=== PATIENT | male | born 1975 | race Caucasian/White ===

== ENCOUNTER → 2020-02-03 17:54 | Outpatient (CLI) | payer OTHER, SELFPAY ==
--- NOTE | 2020-02-03 | DI.MRI.S_ITS ---
PROCEDURE: MR KNEE LT WO CON INDICATIONS: Unspecified superficial injury of left knee, initi TECHNIQUE: Noncontrast sagittal PD fast spin echo and T2 fast spin echo with fat saturation, sagittal 3-D FLASH with fat saturation; coronal T1 spin echo and PD fast spin echo with fat saturation, and axial PD fast spin echo with fat saturation through the knee. COMPARISON: None. FINDINGS: Image quality: Excellent. Menisci: The medial and lateral menisci demonstrate normal morphology and internal signal. The meniscal root ligaments appear intact. Cruciate ligaments: There is rupture of the anterior cruciate ligament near its femoral insertion. Posterior cruciate ligament is intact. Medial structures: Low-grade MCL sprain is seen. The posterior oblique ligament, semimembranosus tendon insertions, oblique popliteal ligament, and meniscocapsular junction appear intact. Visualized portions of the pes anserinus tendons appear normal. No abnormal bursal fluid. Lateral structures: The lateral collateral ligament, long and short heads of the biceps femoris tendon appear intact. The popliteus tendon appears normal; the popliteofibular ligament appears intact. The posterosuperior and anteroinferior popliteomeniscal fascicles appear intact. The arcuate and fabellofibular ligaments appear intact, on either side of the lateral inferior geniculate artery. Iliotibial band appears normal. Anterior structures: The quadriceps and patellar tendons appear intact. Patellar alignment is normal. No femoral trochlear dysplasia or ventral trochlear prominence. No edema in the infrapatellar fat pad. Bones and cartilage: Marrow edema the involving weight-bearing portion of lateral femoral condyle and posterior periphery of proximal tibia extending to both medial and lateral tibial plateau is seen. No discrete fracture line sided. 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 Low-grade chondromalacia in the apex of patella is seen with underlying 3-4 mm subchondral cyst formation. Joint space: There is moderate amount of joint fluid. No Michelle's cyst. Normal appearing synovial plicae are incidentally noted. IMPRESSION: 1. Finding is suggestive of full-thickness ACL rupture. PCL is intact. 2. No evidence of focal meniscal tear. 3. Bony contusion involving weight-bearing portion of lateral femoral condyle and posterior aspect of proximal tibia extending to both medial and lateral tibial plateau. Moderate amount of joint fluid. 4. Low-grade chondromalacia in medial and lateral femoral tibial compartment and apex of patella cartilage as above. 5. Low-grade MCL sprain. Dictated by: Mark Morris M.D. on 02/04/2020 at 8:33 Approved by: Mark Morris M.D. on 02/04/2020 at 8:45
== END ==
PROVIDERS: PCP Student in an Organized Health Care Education/Training Program; Referring Provider Student in an Organized Health Care Education/Training Program; Visit Provider Student in an Organized Health Care Education/Training Program
DX: S83.412A Sprain of medial collateral ligament of left knee, initial encounter (principal); S80.02XA Contusion of left knee, initial encounter; M22.42 Chondromalacia patellae, left knee; X58.XXXA Exposure to other specified factors, initial encounter
CPT/HCPCS: 73721

== ENCOUNTER → 2020-12-11 10:25 | Outpatient (CLI) | payer OTHER, SELFPAY ==
[2020-12-11 11:44] LABS: COVID19 -Nasal RAPID Negative (Negative)
== END ==
PROVIDERS: PCP Student in an Organized Health Care Education/Training Program; Visit Provider Physician Assistant
DX: Z20.822 Contact with and (suspected) exposure to COVID-19 (principal)
CPT/HCPCS: 87635

== ENCOUNTER → 2022-11-24 08:11 | Outpatient (CLI) | payer OTHER, SELFPAY ==
[2022-11-24 08:41] LABS: Add Manual Diff / Slide Review NO; Basophils Absolute Auto 100 /uL (0-100); Eosinophils Absolute Auto 200 /uL (0-450); Eosinophils Percent Auto 2.9 % (2-4); Hematocrit 44.1 % (41-53); Hemoglobin 15.6 g/dL (13.5-17.5); Lymphocytes Absolute Auto 2200 /uL (1100-4500); Mean Corpuscular HGB Conc 35.5 % (30-36); Mean Corpuscular Hemoglobin 30.2 PG (26-34); Mean Corpuscular Volume 85.1 fL (80-100); Monocytes Absolute Auto 600 /uL (0-900); Monocytes Percent Auto 8.1 % (3-14); Neutrophils Absolute Auto 4700 /uL (1500-7000); Platelet Count 183 X10^3/uL (150-400); Red Blood Cell Count 5.19 X10^6/uL (4.5-5.9); Red Cell Distribution Width 13.7 % (11.6-14.8); White Blood Cell Count 7.9 X10^3/uL (4.5-11.0)
[2022-11-24 08:46] LABS: Hemoglobin A1C% w Est Avg Glu 6.5 % (4.0-6.0)
[2022-11-24 09:14] LABS: Alanine Aminotransferase 79 IU/L (<50); Albumin 4.4 g/dL (3.5-5.0); Albumin Globulin Ratio 1.5 (1.0-2.8); Alkaline Phosphatase 75 U/L (38-126); Aspartate Aminotransferase 38 IU/L (17-59); Bilirubin Total 2.1 mg/dL (0.2-1.3); Blood Urea Nitrogen 19 mg/dL (9-20); Calcium 8.9 mg/dL (8.4-10.2); Carbon Dioxide 26 mmol/L (22-32); Chloride 103 mmol/L (98-107); Cholesterol 228 mg/dL (140-199); Estimated Glomerular Filt Rate > 60 mL/min (>60); Globulin 2.9 g/dL (1.7-4.1); Glucose 146 mg/dL (70-100); HDL Cholesterol 31 mg/dL (40-60); Potassium 4.4 mmol/L (3.4-5.1); Sodium 138 mmol/L (137-145); Total Protein 7.3 g/dL (6.3-8.2); Uric Acid 6.9 mg/dL (3.5-8.5)
[2022-11-24 09:21] LABS: HEMOLYSIS 16 (0-50)
[2022-11-24 09:22] LABS: Triglycerides 739 mg/dL (35-150)
== END ==
PROVIDERS: Family Provider Family Medicine; PCP Family Medicine; Referring Provider Family Medicine; Visit Provider Family Medicine
DX: E88.89 Other specified metabolic disorders (principal); G47.30 Sleep apnea, unspecified; Z13.9 Encounter for screening, unspecified; Z85.820 Personal history of malignant melanoma of skin; Z98.890 Other specified postprocedural states; E66.9 Obesity, unspecified
CPT/HCPCS: 36415; 80053; 80061; 83036; 84550; 85025

== ENCOUNTER 2023-01-01 15:15 | Outpatient (RCR) | payer OTHER, SELFPAY ==
--- NOTE | 2022-12-05 09:37 | PT.OIE ---
Current Diagnoses Obesity, unspecified (12/04/22) Other specified metabolic disorders (12/04/22) Other specified postprocedural states (12/04/22) Past Medical History (Last Updated 11/15/22 @ 20:40 by Kimberly Mathew) Allergies (~1999) Foot pain (~1999) History of melanoma (~2020) Liver disease (~1999) Obesity (BMI 30-39.9) Obstructive sleep apnea, adult Sleep apnea (~2016) Steatosis Tinnitus (~1997) Vision disorder (~2007) Past Surgical History (Last Updated 11/15/22 @ 20:40 by Kimberly Mathew) Anesthesia History of repair of anterior cruciate ligament of left knee (~04/2020) Visit Care Team Role Provider Type Christoph Cochran DO Attending Provider Physician Family Provider Primary Care Provider Referring Provider Specialty: Family Practice Address: [address] [place] [address], [facility] Email: [email or web address] Physical Therapy Initial Evaluation PT-OP-A Visit Information Start: 12/04/22 16:35 Freq: Status: Active Protocol: Document 12/04/22 16:00 DCW (Rec: 12/04/22 16:36 DCW [id number]) Out-Patient Physical Therapy Visit Information Visit Information Visit Type Initial Evaluation Visit Start Time 16:00 Visit Stop Time 16:30 Total Visit Minutes 30 Visit Number 1 Number of IT SECURITY ENGINEER Visits 0 Evaluation Information Evaluation Date 12/04/22 PT-OP-B Current Condition Start: 12/04/22 16:35 Freq: Status: Active Protocol: Document 12/04/22 16:00 DCW (Rec: 12/04/22 17:46 DCW [id number]) Current Condition History of Current Condition Onset Date Three year history Current Complaints R knee pain, muscle cramping in left upper leg History of Current Condition Pt is a 47 year old male presenting with a three year history of left leg pain and tenderness. Pt underwent an MRI in January 2020 and was found to have a complete ACL tear. ACL reconstruction with hamstring harvest performed April 2020. Pt reports after surgery, he underwent 1.5 years of PT for recovery, however ever since surgery, he has had tenderness around his knee, and has occasional severe leg cramping. Pt reports cramping begins in his quad, then feels like it goes up into his abdomen, and then down into his calf. Never has any symptoms in his hip or back. Pt reports cramps typically last 20-45 minutes, but the longest has lasted 1 hour 20 minutes. Pt occasionally has difficulty lifting his leg or crossing his left leg over his right. Pt participates in martial arts, and feels he has significantly less control using his left leg for kicking . Has not discovered anything which helps at all. Treatment Goals Patient/Caregiver Goals Minimize occurrences of leg pain and cramping. PT-OP-C Subjective Start: 12/04/22 16:35 Freq: Status: Active Protocol: Document 12/04/22 16:00 DCW (Rec: 12/04/22 16:39 DCW [id number]) OP-PT Subjective Patient Comments Patient Comments I can tell by the way my leg is feeling right now that within 24-96 hours, I'm going to be dealing with a pretty bad cramp. Patient Questionnaires Lower Extremity Functional Scale LEFS Score 54/80 = 67.5% LEFS Impairment 20 to 39% Impaired (Score 48- 62) PT-OP-F Manual Assessment Start: 12/04/22 16:35 Freq: Status: Active Protocol: Document 12/04/22 16:00 DCW (Rec: 12/04/22 17:52 DCW [id number]) Manual Assessments Soft Tissue Assessment Soft Tissue Mobility Assessment Mild-moderate tone left proximal gastroc, distal hamstrings, some mild complaints of general soreness . Joint Mobility Assessment Joint Mobility Assessment Very stable left knee joint with no notable laxity 2.5 years s/p ACL repair, ROM WNL PT-OP-K Range of Motion Start: 12/04/22 16:35 Freq: Status: Active Protocol: Document 12/04/22 16:00 DCW (Rec: 12/04/22 17:52 DCW [id number]) Knee Goniometric Range of Motion Knee Left Knee ROM WFL Yes Patient Position Supine Flexion Active (degrees) 130 Extension Active (degrees) 0 PT-OP-L Special Tests Start: 12/04/22 16:35 Freq: Status: Active Protocol: Document 12/04/22 16:00 DCW (Rec: 12/04/22 17:52 DCW [id number]) Special Tests Knee Special Tests Varus- 25 Degrees Test Results Negative Valgus- 25 Degrees Test Results Negative Posterior Draw Test Results Negative Patella Tap Test Results Negative Dc Test Test Results Negative Apley's Compression Test Results Negative Anterior Draw Test Results Negative PT-OP-M Strength Start: 12/04/22 16:35 Freq: Status: Active Protocol: Document 12/04/22 16:00 DCW (Rec: 12/04/22 17:52 DCW [id number]) Knee Strength Knee Manual Muscle Testing Right Flexion (S2) 5 Normal Extension (L3) 5 Normal Left Flexion (S2) 4 Good Extension (L3) 5 Normal Comments Left flexion initially tests 5 /5, however after 2-3 seconds very quickly fatigues and pt no longer able to pull against resistance PT-OP-T Assessment and Plan Start: 12/04/22 16:35 Freq: Status: Active Protocol: Document 12/04/22 16:00 DCW (Rec: 12/05/22 09:37 DCW [id number]) Physical Therapy Assessment Rehab Potential Rehabilitation Potential Good Evaluation Complexity Number of Personal Factors/Comorbidities 0 Number of Body Systems Impaired 1-2 Clinical Presentation at Evaluation Unstable Impairments Impairments Pain,Strength Goals One Impairment Pt experiences severe occasional cramping in left leg Substation Operator Automatic Goal (LTG) Pt to report no instances of cramping over the course of two weeks to enable him to return to PLOF LTG Duration 02/01/23 Assessment Summary Assessment Pt displays unusual presentation 2.5 years post-op left ACL repair with hamstring harvest site. Pt reports occasional severe cramping in left quads, abdomen, and calf, with no apparent instigating factor. Only notable finding in his evaluation is weakness/ fatigability of left hamstring . Based on presentation, difficult to determine cause of pt symptoms and complaints. One possibility is that due to his active lifestyle and imbalance in left leg strength anterior vs posterior, he overworks his quads for knee stability, causing compensatory distress and muscle spasm. Recommend focusing on improving hamstring strength and activity tolerance specifically. Pt is a relatively young, active individual, and feels comfortable with independent exercise to focus on this goal at this time. Plan for pt to return in 2-3 weeks to discuss progress and determine if any other options are feasible at that time. Physical Therapy Plan Frequency and Duration Frequency of Treatment Every Other Week Plan of Care Start Date 12/04/22 Plan of Care End Date 02/01/23 Therapeutic Interventions Therapeutic Interventions Home Exercise Program,Joint Mobilizations,Manual Therapy, Neuromuscular Re-education, Patient/Caregiver Education, Self-Care/Home Management,Soft Tissue Mobilization, Therapeutic Activities, Therapeutic Exercises Modalities Cold Pack/Ice Massage,Electric Stimulation,Hot Packs Next Visit Focus/Plan Next Note Type Treatment Note Next Visit Plan Hamstring strengthening, increasing activity tolerance
--- NOTE | 2022-12-05 09:39 | PT.OPPOC ---
Physical, Occupational & Speech Therapy At [facility] Current Diagnoses Obesity, unspecified (12/04/22) Other specified metabolic disorders (12/04/22) Other specified postprocedural states (12/04/22) Visit Care Team Role Provider Type Christoph Cochran DO Attending Provider Physician Family Provider Primary Care Provider Referring Provider Specialty: Family Practice Address: [address] [place] [address], [facility] Email: [email or web address] Plan Of Care PT-OP-T Assessment and Plan Start: 12/04/22 16:35 Freq: Status: Active Protocol: Document 12/04/22 16:00 DCW (Rec: 12/05/22 09:37 DCW [id number]) Physical Therapy Assessment Rehab Potential Rehabilitation Potential Good Evaluation Complexity Number of Personal Factors/Comorbidities 0 Number of Body Systems Impaired 1-2 Clinical Presentation at Evaluation Unstable Impairments Impairments Pain,Strength Goals One Impairment Pt experiences severe occasional cramping in left leg Rug Touch Up Painter Goal (LTG) Pt to report no instances of cramping over the course of two weeks to enable him to return to PLOF LTG Duration 02/01/23 Assessment Summary Assessment Pt displays unusual presentation 2.5 years post-op left ACL repair with hamstring harvest site. Pt reports occasional severe cramping in left quads, abdomen, and calf, with no apparent instigating factor. Only notable finding in his evaluation is weakness/ fatigability of left hamstring . Based on presentation, difficult to determine cause of pt symptoms and complaints. One possibility is that due to his active lifestyle and imbalance in left leg strength anterior vs posterior, he overworks his quads for knee stability, causing compensatory distress and muscle spasm. Recommend focusing on improving hamstring strength and activity tolerance specifically. Pt is a relatively young, active individual, and feels comfortable with independent exercise to focus on this goal at this time. Plan for pt to return in 2-3 weeks to discuss progress and determine if any other options are feasible at that time. Physical Therapy Plan Frequency and Duration Frequency of Treatment Every Other Week Plan of Care Start Date 12/04/22 Plan of Care End Date 02/01/23 Therapeutic Interventions Therapeutic Interventions Home Exercise Program,Joint Mobilizations,Manual Therapy, Neuromuscular Re-education, Patient/Caregiver Education, Self-Care/Home Management,Soft Tissue Mobilization, Therapeutic Activities, Therapeutic Exercises Modalities Cold Pack/Ice Massage,Electric Stimulation,Hot Packs Next Visit Focus/Plan Next Note Type Treatment Note Next Visit Plan Hamstring strengthening, increasing activity tolerance Plan of Care Dates Plan of Care Start Date 12/04/22 Plan of Care End Date 02/01/23 Electronically Signed by: Harman Alberts, PT 12/05/22 0939 If you are in agreement with this Plan of Care, please return a signed and dated copy. I have reviewed this Plan of Care and certify that the skilled therapy services above are required to meet the patient?s needs. Physician Signature Date Printed Name and Credentials Clinical Instructor Signature Printed Name and Credentials
--- NOTE | 2023-01-01 16:02 | PT.OTN ---
Current Diagnoses Obesity, unspecified (01/01/23) Other specified metabolic disorders (01/01/23) Other specified postprocedural states (01/01/23) Physical Therapy Treatment Note PT-OP-A Visit Information Start: 12/04/22 16:35 Freq: Status: Active Protocol: Document 01/01/23 15:15 DCW (Rec: 01/01/23 16:02 DCW [id number]) Out-Patient Physical Therapy Visit Information Visit Information Visit Type Treatment Note Visit Start Time 15:15 Visit Stop Time 16:00 Total Visit Minutes 45 Visit Number 2 Number of INFORMATION TECHNOLOGY ANALYST Visits 0 Evaluation Information Evaluation Date 12/04/22 PT-OP-B Current Condition Start: 12/04/22 16:35 Freq: Status: Active Protocol: Document 12/04/22 16:00 DCW (Rec: 12/04/22 17:46 DCW [id number]) Current Condition History of Current Condition Onset Date Three year history Current Complaints R knee pain, muscle cramping in left upper leg History of Current Condition Pt is a 47 year old male presenting with a three year history of left leg pain and tenderness. Pt underwent an MRI in January 2020 and was found to have a complete ACL tear. ACL reconstruction with hamstring harvest performed April 2020. Pt reports after surgery, he underwent 1.5 years of PT for recovery, however ever since surgery, he has had tenderness around his knee, and has occasional severe leg cramping. Pt reports cramping begins in his quad, then feels like it goes up into his abdomen, and then down into his calf. Never has any symptoms in his hip or back. Pt reports cramps typically last 20-45 minutes, but the longest has lasted 1 hour 20 minutes. Pt occasionally has difficulty lifting his leg or crossing his left leg over his right. Pt participates in martial arts, and feels he has significantly less control using his left leg for kicking . Has not discovered anything which helps at all. Treatment Goals Patient/Caregiver Goals Minimize occurrences of leg pain and cramping. PT-OP-C Subjective Start: 12/04/22 16:35 Freq: Status: Active Protocol: Document 01/01/23 15:15 DCW (Rec: 01/01/23 16:02 DCW [id number]) OP-PT Subjective Patient Comments Patient Comments Pt reports he has been trying to do more squats and walking on treadmill to get his hamstrings working better. PT-OP-F Manual Assessment Start: 12/04/22 16:35 Freq: Status: Active Protocol: Document 12/04/22 16:00 DCW (Rec: 12/04/22 17:52 DCW [id number]) Manual Assessments Soft Tissue Assessment Soft Tissue Mobility Assessment Mild-moderate tone left proximal gastroc, distal hamstrings, some mild complaints of general soreness . Joint Mobility Assessment Joint Mobility Assessment Very stable left knee joint with no notable laxity 2.5 years s/p ACL repair, ROM WNL PT-OP-K Range of Motion Start: 12/04/22 16:35 Freq: Status: Active Protocol: Document 12/04/22 16:00 DCW (Rec: 12/04/22 17:52 DCW [id number]) Knee Goniometric Range of Motion Knee Left Knee ROM WFL Yes Patient Position Supine Flexion Active (degrees) 130 Extension Active (degrees) 0 PT-OP-L Special Tests Start: 12/04/22 16:35 Freq: Status: Active Protocol: Document 12/04/22 16:00 DCW (Rec: 12/04/22 17:52 DCW [id number]) Special Tests Knee Special Tests Varus- 25 Degrees Test Results Negative Valgus- 25 Degrees Test Results Negative Posterior Draw Test Results Negative Patella Tap Test Results Negative Dc Test Test Results Negative Apley's Compression Test Results Negative Anterior Draw Test Results Negative PT-OP-M Strength Start: 12/04/22 16:35 Freq: Status: Active Protocol: Document 12/04/22 16:00 DCW (Rec: 12/04/22 17:52 DCW [id number]) Knee Strength Knee Manual Muscle Testing Right Flexion (S2) 5 Normal Extension (L3) 5 Normal Left Flexion (S2) 4 Good Extension (L3) 5 Normal Comments Left flexion initially tests 5 /5, however after 2-3 seconds very quickly fatigues and pt no longer able to pull against resistance PT-OP-Q Treatments Start: 12/04/22 16:35 Freq: Status: Active Protocol: Document 01/01/23 15:15 DCW (Rec: 01/01/23 16:02 DCW [id number]) Cardio Equipment Treadmill Duration (Minutes) 5 Speed 2.0 Incline 10.0 Other Retro Ambulation Gym Equipment Shuttle Recovery Retro Kick Details Backward kick in quarduped Resistance 50# Therapeutic Ball Bridging Exercise Details Bridging /c HS curls Ball Size/Color Red - 55 cm Therapeutic Exercises Sitting Exercises Hamstring Curl Sitting Exercise Name HS curl Side bilateral Resistance Lv 4 Standing Exercises Hip Extension Standing Exercise Name Hip Extension Side bilateral Resistance Blue Manual Therapy Treatment Soft Tissue Mobilization Calf Body Location L Proximal Calf Medial>Lateral Mobilization Type Sustained Pressure,Trigger Point Release Intensity/Depth Moderate PT-OP-T Assessment and Plan Start: 12/04/22 16:35 Freq: Status: Active Protocol: Document 01/01/23 15:15 DCW (Rec: 01/01/23 16:02 DCW [id number]) Physical Therapy Assessment Goals One Impairment Pt experiences severe occasional cramping in left leg Internet Sales Consultant Goal (LTG) Pt to report no instances of cramping over the course of two weeks to enable him to return to PLOF LTG Duration 02/01/23 Assessment Summary Assessment Focused today on hamstring and glute-specific strengthening activities for pt to perform as his HEP in an effort to improve tolerance to activity of left hamstrings, which seems to fatigue very quickly for pt. Physical Therapy Plan Frequency and Duration Frequency of Treatment Every Other Week Plan of Care Start Date 12/04/22 Plan of Care End Date 02/01/23 Therapeutic Interventions Therapeutic Interventions Home Exercise Program,Joint Mobilizations,Manual Therapy, Neuromuscular Re-education, Patient/Caregiver Education, Self-Care/Home Management,Soft Tissue Mobilization, Therapeutic Activities, Therapeutic Exercises Modalities Cold Pack/Ice Massage,Electric Stimulation,Hot Packs Next Visit Focus/Plan Next Note Type Treatment Note Next Visit Plan Hamstring strengthening, increasing activity tolerance
--- NOTE | 2023-04-30 17:14 | PT.OPDS ---
Current Diagnoses Obesity, unspecified (01/01/23) Other specified metabolic disorders (01/01/23) Other specified postprocedural states (01/01/23) Visit Care Team Role Provider Type Christoph Cochran DO Attending Provider Physician Family Provider Primary Care Provider Referring Provider Specialty: Family Practice Address: [address] [place] [address], [id number] Email: [email or web address] Visit Number Visit Number 2 Discharge Summary PT-OP-B Current Condition Start: 12/04/22 16:35 Freq: Status: Active Protocol: Document 12/04/22 16:00 DCW (Rec: 12/04/22 17:46 DCW [id number]) Current Condition History of Current Condition Onset Date Three year history Current Complaints R knee pain, muscle cramping in left upper leg History of Current Condition Pt is a 47 year old male presenting with a three year history of left leg pain and tenderness. Pt underwent an MRI in January 2020 and was found to have a complete ACL tear. ACL reconstruction with hamstring harvest performed April 2020. Pt reports after surgery, he underwent 1.5 years of PT for recovery, however ever since surgery, he has had tenderness around his knee, and has occasional severe leg cramping. Pt reports cramping begins in his quad, then feels like it goes up into his abdomen, and then down into his calf. Never has any symptoms in his hip or back. Pt reports cramps typically last 20-45 minutes, but the longest has lasted 1 hour 20 minutes. Pt occasionally has difficulty lifting his leg or crossing his left leg over his right. Pt participates in martial arts, and feels he has significantly less control using his left leg for kicking . Has not discovered anything which helps at all. Treatment Goals Patient/Caregiver Goals Minimize occurrences of leg pain and cramping. PT-OP-C Subjective Start: 12/04/22 16:35 Freq: Status: Active Protocol: Document 01/01/23 15:15 DCW (Rec: 01/01/23 16:02 DCW [id number]) OP-PT Subjective Patient Comments Patient Comments Pt reports he has been trying to do more squats and walking on treadmill to get his hamstrings working better. PT-OP-F Manual Assessment Start: 12/04/22 16:35 Freq: Status: Active Protocol: Document 12/04/22 16:00 DCW (Rec: 12/04/22 17:52 DCW [id number]) Manual Assessments Soft Tissue Assessment Soft Tissue Mobility Assessment Mild-moderate tone left proximal gastroc, distal hamstrings, some mild complaints of general soreness . Joint Mobility Assessment Joint Mobility Assessment Very stable left knee joint with no notable laxity 2.5 years s/p ACL repair, ROM WNL PT-OP-K Range of Motion Start: 12/04/22 16:35 Freq: Status: Active Protocol: Document 12/04/22 16:00 DCW (Rec: 12/04/22 17:52 DCW [id number]) Knee Goniometric Range of Motion Knee Left Knee ROM WFL Yes Patient Position Supine Flexion Active (degrees) 130 Extension Active (degrees) 0 PT-OP-L Special Tests Start: 12/04/22 16:35 Freq: Status: Active Protocol: Document 12/04/22 16:00 DCW (Rec: 12/04/22 17:52 DCW [id number]) Special Tests Knee Special Tests Varus- 25 Degrees Test Results Negative Valgus- 25 Degrees Test Results Negative Posterior Draw Test Results Negative Patella Tap Test Results Negative Dc Test Test Results Negative Apley's Compression Test Results Negative Anterior Draw Test Results Negative PT-OP-M Strength Start: 12/04/22 16:35 Freq: Status: Active Protocol: Document 12/04/22 16:00 DCW (Rec: 12/04/22 17:52 DCW [id number]) Knee Strength Knee Manual Muscle Testing Right Flexion (S2) 5 Normal Extension (L3) 5 Normal Left Flexion (S2) 4 Good Extension (L3) 5 Normal Comments Left flexion initially tests 5 /5, however after 2-3 seconds very quickly fatigues and pt no longer able to pull against resistance PT-OP-T Assessment and Plan Start: 12/04/22 16:35 Freq: Status: Active Protocol: Document 04/30/23 17:14 DCW (Rec: 04/30/23 17:14 DCW [id number]) Physical Therapy Assessment Assessment Summary Assessment Pt has now not been seen in more than four months, POC has now . Pt will require a new referral in order to return to skilled therapy. Pt will be discharged from PT at this time.
== END 2023-05-01 12:25 | disposition home or self-care (01) ==
LOC: PHYS 15:15
PROVIDERS: Absent Provider Family Medicine; Family Provider Family Medicine; PCP Family Medicine; Referring Provider Family Medicine; Visit Provider Family Medicine
DX: Z98.890 Other specified postprocedural states (principal); E66.9 Obesity, unspecified; E88.89 Other specified metabolic disorders
CPT/HCPCS: 97110; 97161

== ENCOUNTER → 2024-02-19 09:25 | Outpatient (CLI) | payer BC, OTHER, SELFPAY ==
--- NOTE | 2024-02-19 09:27 | DI.RAD.S_ITS ---
PROCEDURE: XR WRIST RT MIN 3V INDICATIONS: Atraumatic progressive right wrist pain distal ulna TECHNIQUE: 4 views of the wrist were acquired. COMPARISON: None. FINDINGS: Bones: No fractures or dislocations. No suspicious bony lesions. Soft tissues: No suspicious soft tissue calcifications. IMPRESSION: No visualized acute fracture or dislocation. However, if clinical concern and/or pain persist, short interval imaging followup in 7-10 days is recommended, as occult injury cannot be definitively excluded. Dictated by: Brianna Suggs M.D. on 02/19/2024 at 13:16 Approved by: Brianna Suggs M.D. on 02/19/2024 at 13:17
== END ==
LOC: RAD 09:26
PROVIDERS: Family Provider Family Medicine; PCP Family Medicine; Referring Provider Family Medicine; Visit Provider Family Medicine
DX: M25.531 Pain in right wrist (principal)
CPT/HCPCS: 73110

== ENCOUNTER → 2024-06-07 08:07 | Outpatient (CLI) | payer BC, OTHER, SELFPAY ==
[2024-06-07 08:36] LABS: Add Manual Diff / Slide Review NO; Basophils Absolute Auto 100 /uL (0-100); Basophils Percent Auto 1.1 % (0-2); Eosinophils Absolute Auto 200 /uL (0-450); Eosinophils Percent Auto 2.9 % (2-4); Hematocrit 44.3 % (41-53); Hemoglobin 15.7 g/dL (13.5-17.5); Lymphocytes Absolute Auto 2200 /uL (1100-4500); Lymphocytes Percent Auto 31.6 % (25-40); Mean Corpuscular HGB Conc 35.4 % (30-36); Mean Corpuscular Hemoglobin 29.8 PG (26-34); Mean Corpuscular Volume 84.2 fL (80-100); Monocytes Absolute Auto 600 /uL (0-900); Monocytes Percent Auto 8.7 % (3-14); Neutrophils Absolute Auto 3800 /uL (1500-7000); Neutrophils Percent Auto 55.7 % (50-75); Platelet Count 171 X10^3/uL (150-400); Red Blood Cell Count 5.26 X10^6/uL (4.5-5.9); White Blood Cell Count 6.8 X10^3/uL (4.5-11.0)
[2024-06-07 08:48] LABS: Hemoglobin A1C% w Est Avg Glu 6.7 % (4.0-6.0)
[2024-06-07 09:05] LABS: Alanine Aminotransferase 65 IU/L (<50); Albumin 4.3 g/dL (3.5-5.0); Albumin Globulin Ratio 1.5 (1.0-2.8); Alkaline Phosphatase 72 U/L (38-126); Aspartate Aminotransferase 36 IU/L (17-59); BUN Creatinine Ratio 23.3 (6-22); Bilirubin Total 1.7 mg/dL (0.2-1.3); Blood Urea Nitrogen 24 mg/dL (9-20); Calcium 9.3 mg/dL (8.4-10.2); Carbon Dioxide 28 mmol/L (22-32); Chloride 107 mmol/L (98-107); Cholesterol 212 mg/dL (140-199); Estimated Glomerular Filt Rate > 60 mL/min (>60); Globulin 2.8 g/dL (1.7-4.1); Glucose 146 mg/dL (70-100); HDL Cholesterol 28 mg/dL (40-60); HEMOLYSIS < 15 (0-50); Magnesium 1.9 mg/dL (1.6-2.3); Potassium 4.5 mmol/L (3.4-5.1); Sodium 138 mmol/L (137-145); Total Protein 7.1 g/dL (6.3-8.2)
[2024-06-07 09:13] LABS: Creatinine Urine Random 248.15 mg/dL
[2024-06-07 09:16] LABS: Triglycerides 803 mg/dL (35-150)
[2024-06-07 09:32] LABS: TSH w/ Reflex to FT4 2.09 uIU/mL (0.47-4.68)
[2024-06-07 10:22] LABS: Microalbumin Urine Random 1.1 mg/dL (0-1.6)
== END ==
LOC: LAB 08:08
PROVIDERS: Family Provider Family Medicine; PCP Family Medicine; Referring Provider Physician Assistant; Visit Provider Physician Assistant
DX: R53.83 Other fatigue (principal); I10 Essential (primary) hypertension; R73.01 Impaired fasting glucose; E78.2 Mixed hyperlipidemia; R25.2 Cramp and spasm
CPT/HCPCS: 36415; 80053; 80061; 82043; 82570; 83036; 83735; 84443; 85025

== ENCOUNTER → 2024-07-18 06:52 | Outpatient (CLI) | payer OTHER, SELFPAY ==
[2024-07-18 08:16] LABS: Hemoglobin A1C% w Est Avg Glu 5.6 % (4.0-6.0)
[2024-07-18 08:42] LABS: Alanine Aminotransferase 49 IU/L (<50); Albumin 4.3 g/dL (3.5-5.0); Albumin Globulin Ratio 1.9 (1.0-2.8); Alkaline Phosphatase 53 U/L (38-126); Aspartate Aminotransferase 36 IU/L (17-59); BUN Creatinine Ratio 21.1 (6-22); Bilirubin Total 0.9 mg/dL (0.2-1.3); Blood Urea Nitrogen 26 mg/dL (9-20); Calcium 9.3 mg/dL (8.4-10.2); Carbon Dioxide 26 mmol/L (22-32); Chloride 105 mmol/L (98-107); Cholesterol 160 mg/dL (140-199); Estimated Glomerular Filt Rate > 60 mL/min (>60); Globulin 2.3 g/dL (1.7-4.1); Glucose 103 mg/dL (70-100); HDL Cholesterol 32 mg/dL (40-60); HEMOLYSIS < 15 (0-50); LDL Cholesterol Calculated 74 mg/dL (<100); Potassium 4.4 mmol/L (3.4-5.1); Sodium 140 mmol/L (137-145); Total Protein 6.6 g/dL (6.3-8.2); Triglycerides 269 mg/dL (35-150)
== END ==
PROVIDERS: Family Provider Family Medicine; PCP Family Medicine; Referring Provider Physician Assistant; Visit Provider Physician Assistant
DX: E11.9 Type 2 diabetes mellitus without complications (principal); E78.1 Pure hyperglyceridemia; I10 Essential (primary) hypertension
CPT/HCPCS: 36415; 80053; 80061; 83036

== ENCOUNTER → 2024-07-21 13:02 | Outpatient (CLI) | payer OTHER, SELFPAY ==
--- NOTE | 2024-07-21 14:00 | DI.MRI.S_ITS ---
PROCEDURE: MR ELBOW RT WO CON INDICATIONS: Persistent Right elbow pain, R/O Ligamentous injury TECHNIQUE: Noncontrast coronal proton density fast spin echo and T2 fast spin echo with fat saturation, axial and sagittal T1 spin echo and T2 fast spin echo with fat saturation through the elbow. COMPARISON: None. FINDINGS: Image quality: Excellent. Lateral structures: The lateral ulnar collateral ligament and radial collateral ligament both appear intact. The overlying common extensor tendon also appears normal. Medial structures: The ulnar collateral ligament appears thickened with intrasubstance T2 hyperintense signal at its medial epicondylar insertion. The overlying common flexor tendon also appears thickened at its medial epicondylar insertion. The ulnar nerve appears normal in size and signal within the cubital tunnel. Anterior structures: The biceps and brachialis tendons both appear intact as they insert onto the proximal radius and ulna, respectively. No bicipitoradial bursal fluid. The median and radial neurovascular bundles appear normal; no focal muscle atrophy to suggest nerve impingement. Posterior structures: The conjoint triceps tendon from the long and lateral heads appears intact. The medial head of the triceps tendon also appears normal, with direct muscle insertion onto the olecranon. No olecranon bursal fluid. Bone and cartilage: No bone marrow contusions or fractures. No osteochondral injuries. IMPRESSION: 1. Finding is suggestive of [id number] medial epicondylitis with low-grade partial-thickness tear involving proximal ulnar collateral ligament and overlying common flexor tendinosis. 2. Rest of the elbow tendons and ligaments are intact. 3. No marrow edema. No fracture or dislocation. No intra-articular loose bodies. Dictated by: Mark Morris M.D. on 07/21/2024 at 15:41 Approved by: Mark Morris M.D. on 07/21/2024 at 15:42
== END ==
PROVIDERS: Family Provider Family Medicine; PCP Family Medicine; Referring Provider Orthopaedic Surgery; Visit Provider Orthopaedic Surgery
DX: M25.531 Pain in right wrist (principal)
CPT/HCPCS: 73221

== ENCOUNTER → 2024-10-08 15:52 | Outpatient (CLI) | payer OTHER, SELFPAY ==
--- NOTE | 2024-10-08 15:53 | DI.RAD.S_ITS ---
PROCEDURE: XR FOOT LT MIN 3V INDICATIONS: Foot pain TECHNIQUE: 3 views of the foot were acquired. COMPARISON: None. FINDINGS: Bones: No fractures or dislocations. No suspicious bony lesions. Retro calcaneal plantar bone spurs. Soft tissues: No tibiotalar joint effusion. Achilles tendon appears normal. IMPRESSION: Calcaneal heal spur and Achilles insertion enthesopathy. Dictated by: Hardy Pinzon [facility] Interpreted: Bruce Smith MD on 10/08/2024 at 16:13 Transcribed by: HERMINIO on 10/08/2024 at 16:14 Approved by: Bruce Simth M.D. on 10/15/2024 at 8:44
--- NOTE | 2024-10-08 15:53 | DI.RAD.S_ITS ---
PROCEDURE: XR FOOT RT MIN 3V INDICATIONS: Foot pain TECHNIQUE: 3 views of the foot were acquired. COMPARISON: [facility], CR, XR FOOT LT MIN 3V, 10/08/2024, 15:59. FINDINGS: Bones: No fractures or dislocations. No suspicious bony lesions. Moderate calcaneal heal spur. Soft tissues: No tibiotalar joint effusion. Achilles tendon appears normal. IMPRESSION: Moderate calcaneal heal spur. Dictated by: Hardy Pinzon [facility] Interpreted: Bruce Smith MD on 10/08/2024 at 16:14 Transcribed by: HERMINIO on 10/08/2024 at 16:15 Approved by: Bruce Smith M.D. on 10/15/2024 at 9:56
== END ==
PROVIDERS: Family Provider Family Medicine; PCP Family Medicine; Referring Provider Family Medicine; Visit Provider Family Medicine
DX: M72.2 Plantar fascial fibromatosis (principal); M77.32 Calcaneal spur, left foot; M77.31 Calcaneal spur, right foot; M79.673 Pain in unspecified foot
CPT/HCPCS: 73630

== ENCOUNTER → 2024-12-29 15:08 | Outpatient (CLI) | payer OTHER, SELFPAY ==
[2024-12-29 16:58] LABS: Alanine Aminotransferase 52 IU/L (<50); Albumin 4.8 g/dL (3.5-5.0); Albumin Globulin Ratio 1.8 (1.0-2.8); Alkaline Phosphatase 50 U/L (38-126); Aspartate Aminotransferase 34 IU/L (17-59); BUN Creatinine Ratio 18.1 (6-22); Bilirubin Total 0.7 mg/dL (0.2-1.3); Blood Urea Nitrogen 23 mg/dL (9-20); Carbon Dioxide 25 mmol/L (22-32); Chloride 103 mmol/L (98-107); Cholesterol 175 mg/dL (140-199); Estimated Glomerular Filt Rate > 60 mL/min (>60); Globulin 2.7 g/dL (1.7-4.1); Glucose 94 mg/dL (70-100); HDL Cholesterol 33 mg/dL (40-60); HEMOLYSIS < 15 (0-50); LDL Cholesterol Calculated 79 mg/dL (<100); Potassium 4.3 mmol/L (3.4-5.1); Sodium 139 mmol/L (137-145); Total Protein 7.5 g/dL (6.3-8.2); Triglycerides 315 mg/dL (35-150)
[2024-12-29 17:03] LABS: Hemoglobin A1C% w Est Avg Glu 5.8 % (4.0-6.0)
== END ==
PROVIDERS: Family Provider Family Medicine; PCP Family Medicine; Referring Provider Family Medicine; Visit Provider Family Medicine
DX: M72.2 Plantar fascial fibromatosis (principal); E11.9 Type 2 diabetes mellitus without complications; E78.1 Pure hyperglyceridemia; I10 Essential (primary) hypertension
CPT/HCPCS: 36415; 80053; 80061; 83036

== ENCOUNTER → 2025-10-30 19:41 | Outpatient (CLI) | payer OTHER, SELFPAY ==
--- NOTE | 2025-10-30 19:43 | DI.MRI.S_ITS ---
PROCEDURE: MR ELBOW RT WO CON INDICATIONS: screening TECHNIQUE: Noncontrast coronal proton density fast spin echo and T2 fast spin echo with fat saturation, axial and sagittal T1 spin echo and T2 fast spin echo with fat saturation through the elbow. COMPARISON: [facility], MR, MR ELBOW RT WO CON, 07/21/2024, 13:30. FINDINGS: Image quality: Excellent. Lateral structures: Thickening of the proximal common flexor tendon is seen with focal hyperintense intrasubstance signal at the origin, compatible with low-grade partial tearing and chronic tendinosis. The lateral ulnar collateral ligament and radial collateral ligament both appear intact. Medial structures: Mild proximal common flexor tendinosis and suspected remote prior partial tearing of the ulnar collateral ligament, which appear less prominent when compared to the exam from 07/21/2024, likely related to healing changes. The ulnar nerve appears normal in size and signal within the cubital tunnel. Mild subcutaneous edema is seen in the soft tissues overlying the medial epicondyle. Anterior structures: The biceps and brachialis tendons both appear intact as they insert onto the proximal radius and ulna, respectively. No bicipitoradial bursal fluid. The median and radial neurovascular bundles appear normal; no focal muscle atrophy to suggest nerve impingement. Posterior structures: The conjoint triceps tendon from the long and lateral heads appears intact. The medial head of the triceps tendon also appears normal, with direct muscle insertion onto the olecranon. No olecranon bursal fluid. Bone and cartilage: No bone marrow contusions or fractures. No osteochondral injuries. IMPRESSION: 1. Focal low-grade partial intrasubstance tearing of the common extensor tendon at the origin superimposed on [id number] tendinosis, and new when compared to the MRI from 07/21/2024. 2. Mild proximal common flexor tendinosis and remote prior low-grade partial tearing of the adjacent ulnar collateral ligament at the origin, which appear less prominent when compared to the prior MRI. Approved by: Raleigh Haynes M.D. on 11/02/2025 at 12:16
== END ==
LOC: MRI 19:42
PROVIDERS: PCP Family Medicine; Referring Provider Family Medicine; Visit Provider Family Medicine
DX: G56.21 Lesion of ulnar nerve, right upper limb (principal); S56.511A Strain of other extensor muscle, fascia and tendon at forearm level, right arm, initial encounter; S53.441A Ulnar collateral ligament sprain of right elbow, initial encounter; M25.521 Pain in right elbow
CPT/HCPCS: 73221